=== PATIENT | male | born 1975 | race African-American/Black ===

== ENCOUNTER 2021-11-13 08:23 | Emergency (ER) | payer OTHER ==
[2021-11-13] MEDS ORDERED: Acetaminophen 500 MG TAB ONE (10:01)
[2021-11-13] MEDS ORDERED: Ibuprofen 200 MG TAB ONE (10:01)
== END 2021-11-13 10:02 | disposition home or self-care (01) ==
LOC: CSHERS 08:23
DX: R20.2 Paresthesia of skin (principal); M79.605 Pain in left leg; M79.604 Pain in right leg; I11.0 Hypertensive heart disease with heart failure; I50.9 Heart failure, unspecified; E11.9 Type 2 diabetes mellitus without complications; F17.210 Nicotine dependence, cigarettes, uncomplicated
CPT/HCPCS: 99283

== ENCOUNTER 2025-06-12 12:00 | Emergency (ER) | payer OTHER ==
[~2025-06-12 12:00] MED LIST: Iopamidol 300 61% 100 ML VIAL FS ONE
[2025-06-12] MEDS ORDERED: Droperidol 5 MG/2 ML VIAL ONE (12:49)
[2025-06-12] MEDS ORDERED: hydrALAZINE 20 MG/ML VIAL ONE (12:49)
[2025-06-12 13:29] LABS: Actual Bicarbonate (HCO3v) 27.4 mEq/L (22-28); Analyzer IN Cardio CS ER; Base Excess 3.4 mEq/L (-2 - +2); Calcium, Ionized (venous) 1.13 mmol/L (1.16-1.32); Chloride (VBG) 94 mmol/L (98-106); Critical Notified Whom: ferme; Hematocrit-VBG 49 % (42.0-52.0); Hemoglobin (Hb) 16.6 g/dL (13.1-17.2); Potassium (VBG) 3.36 mmol/L (3.70-5.30); Puncture Site Other Site; RapidComm Collect By LAB; Sodium 136 mmol/L (133-146)
[2025-06-12 13:31] LABS: #Basophils Less than 0.03 10x3/uL (0.0-0.2); #Eosinophils 0.57 10x3/uL (0.0-0.5); #Monocytes 1.13 10x3/uL (0.0-1.1); #Neutrophils 12.84 10x3/uL (1.5-8.4); %Basophils 0.1 % (0.0-2.0); %Eosinophils 3.6 % (0.0-6.0); %Lymphocytes 7.5 % (18.0-47.0); %Monocytes 7.1 % (0.0-10.0); %Neutrophils 81.3 % (40.0-75.0); Hematocrit 45.1 % (38.8-50.0); Hemoglobin 15.4 g/dL (13.5-17.5); Mean Corpuscular Hemoglobin 29.1 pg (27.0-33.0); Mean Corpuscular Volume 85.3 fL (81.2-95.1); Platelet Count 286 10x3/uL (150-450); Red Blood Cell (RBC) Count 5.29 10x6/uL (4.32-5.72); White Blood Cell (WBC) Count 15.81 10x3/uL (3.5-10.5)
[2025-06-12 13:56] LABS: ALT (SGPT) 14 U/L (Less than 45); AST (SGOT) 28 U/L (11-34); Albumin 3.9 g/dL (3.1-4.5); Alkaline Phosphatase 51 U/L (40-110); Anion Gap 17 mmol/L (10-20); BUN (Urea Nitrogen) 8 mg/dL (8.9-20.6); Bilirubin, Total 0.6 mg/dL (0.3-1.2); Calc. Creatinine Clearance 0 mL/min (70-130); Calcium 9.8 mg/dL (7.8-10.44); Carbon Dioxide 28 mmol/L (22-29); Chloride 94 mmol/L (98-107); Globulin 3.7 g/dL (2.4-3.5); Glucose 335 mg/dL (70-105); Lipase 9 U/L (8-78); Magnesium 1.7 mg/dL (1.6-2.6); Potassium 3.3 mmol/L (3.5-5.1); Sodium 136 mmol/L (136-145)
[2025-06-12 14:01] LABS: Troponin I 0.015 ng/mL (< 0.028)
[2025-06-12 15:11] LABS: Glucose, Urine (Dipstick) >=1000 mg/dL (Negative); Leukocyte 25 (Negative); Specific Gravity, Urine 1.010 (1.005-1.030)
[2025-06-12 15:36] LABS: Protein, Urine (Dipstick) Negative (Neg-Trace)
[2025-06-12 15:37] LABS: CAUTI Indications for Culture Alt mental st,lethar; RBC/HPF 0-3 HPF (0-3)
[2025-06-12 15:38] LABS: Bacteria/HPF 2+ HPF (None Seen)
[2025-06-12 15:40] LABS: Urine Culture Reflex No No
[2025-06-12] MEDS ORDERED: cefTRIAXone (ROCEPHIN) 1 GM VIAL ONE (16:01)
== END 2025-06-12 16:10 | disposition home or self-care (01) ==
LOC: CSHERS 12:00
DX: E11.65 Type 2 diabetes mellitus with hyperglycemia (principal); N39.0 Urinary tract infection, site not specified; R11.2 Nausea with vomiting, unspecified; I11.0 Hypertensive heart disease with heart failure; I50.9 Heart failure, unspecified; F17.210 Nicotine dependence, cigarettes, uncomplicated
CPT/HCPCS: 71045; 74177; 80053; 81001; 82010; 82805; 82962; 83605; 83690; 83735; 84100; 84484; 85025; 87040; 93005; 94760; J0360; J0696; J1790; 36415; 36416; 96361; 96374; 96375